=== PATIENT | male | born 1970 | race Caucasian/White ===

== ENCOUNTER 2018-04-01 13:38 | Day surgery (SDC) | payer OTHER ==
[2018-04-01] MEDS ORDERED: NICOTINE (21 MG/24 HR) PATCH TRANSDERM (16:30)
[2018-04-01] MEDS: NICOTINE (21 MG/24 HR) PATCH TRANSDERM (16:36)
[2018-04-01] MEDS ORDERED: MIDAZOLAM 1 MG/ML 2 ML INJ (18:13)
[2018-04-01] MEDS ORDERED: PROPOFOL 20 ML (18:13)
[2018-04-01] MEDS ORDERED: LIDOCAINE 1% (MDV) 20 ML INJ (18:14)
[2018-04-01] MEDS ORDERED: FENTAnyl 50 MCG/ML VIAL (18:14)
[2018-04-01] MEDS ORDERED: ROPIVACAINE 0.5 % 30 ML VIAL (18:30)
[2018-04-01] MEDS ORDERED: ONDANSETRON 4 MG INJ (19:30)
[2018-04-01] MEDS ORDERED: POLYMYXIN/BACITRACIN 1L IRRIG (19:40)
== END 2018-04-01 20:37 | disposition home or self-care (01) ==
LOC: SUR 13:38 → SDS 13:38 → SUR 20:37
DX: S62.316D Displaced fracture of base of fifth metacarpal bone, right hand, subsequent encounter for fracture with routine healing (principal); S62.314D Displaced fracture of base of fourth metacarpal bone, right hand, subsequent encounter for fracture with routine healing; X58.XXXD Exposure to other specified factors, subsequent encounter
CPT/HCPCS: 26746; 73130-RT